=== PATIENT | female | born 1935 | race Caucasian/White ===

== ENCOUNTER → 2017-05-09 | Outpatient (CLI) | payer MEDICARE, OTHER ==
--- NOTE | 2017-05-09 13:12 | WWHP ---
DATE OF SERVICE: 05/09/17 CHIEF COMPLAINT: The patient is here for her routine gynecological exam and mammogram. HISTORY OF PRESENT ILLNESS: This is a 81-year-old G6, P5, 0, 1, 5 with an LMP of 1998. The patient is without gynecologic complaints and denies post menopausal bleeding. PAST MEDICAL HISTORY: Chronic hypertension, elevated cholesterol, osteopenia and history of transient acute anemia of unknown etiology in 2014. Medications: 1. Enalapril 10 mg daily. 2. Amlodipine 5 mg daily. 3. Simvastatin 20 mg daily. 4. Areds-2 two capsules daily. ALLERGIES: NOVOCAINE AND EPINEPHRINE. 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 SOCIAL HISTORY: She denies tobacco and drug use and has 0 to 2 alcohol drinks per month. She is a and is not seeing anybody at this time. 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 REVIEW OF SYSTEMS: She has gained about five pounds over the last year. She denies respiratory, cardiac or GI problems. She denies maltreatment or falling. : She does have occasional urinary leakage and this is about the same as in the past. PHYSICAL EXAM: Blood pressure 151/89. Height 5 feet 6 and one half inches. Weight 155 pounds. Temperature 97.7. Pulse 73. This is a well developed, well nourished white female who is alert and oriented times three in no acute distress. HEENT: is within normal limits. Neck is supple. There is a right sided soft tissue mass that measures approximately 5 cm which is smooth and nontender. This is unchanged from her previous exam. Chest and lungs clear to auscultation. Heart is regular rate and rhythm. Breasts: Without mass or discharge. Axillary exam is negative for adenopathy. Back negative for CVA tenderness. Abdomen is soft and nontender without palpable masses. Pelvic exam, external genitalia reveals mild to moderate atrophy without lesions. Cervix and vagina reveals mild to moderate atrophy without lesions. There is a Grade II cystocele in the midline. There is no significant change with Valsalva. No urinary leakage was demonstrated. The uterus seems well supported. The uterus is mid position, nongravid size and nontender. There are no palpable adnexal masses or tenderness. Rectal vaginal exam negative for mass or tenderness. Negative for occult blood. Extremities nontender. IMPRESSION: 1. A 81 year old menopausal female with Grade II cystocele. 2. Mild urinary incontinence. 3. History of osteopenia. 4. Right neck mass which is stable from last years exam. 5. Elevated blood pressure with history of chronic hypertension. PLAN: 1. Pap smear was deferred since she had a normal one last year. 2. Self breast examination was discussed with the patient. 3. Mammogram will be done today. 4. Osteoporosis prevention was discussed. We will plan on repeat bone density testing in one to two years. 5. The patient states she has seen her dry plasterer helper who has been following the right neck mass and states she will continue to see Dr. Santiago for this. 6. We discussed her Grade II cystocele, as she is having greater problems with urinary incontinence, we will consider referral to a urogynecologist. She was instructed to call if she would like to proceed with the referral. 7. She will return in one year. JOANNA
--- NOTE | 2017-05-10 07:46 | MM ---
Reason for exam: screening (asymptomatic). Last mammogram was performed 1 year and 1 month ago. History: Patient is postmenopausal. 2 benign cyst aspirations of the left breast. 2 benign cyst aspirations of the right breast. Benign excisional biopsy of the left breast. Physical Findings: A clinical breast exam by your physician is recommended on an annual basis and results should be correlated with mammographic findings. MG 3D Screening Mammo W/Cad Bilateral CC and MLO view(s) were taken. Prior study comparison: April 20, 2016, bilateral MG 3d screening mammo w/cad. April 07, 2015, left breast MG work up mamm w CAD LT. There are scattered fibroglandular densities. Benign calcifications seen. No significant changes when compared with prior studies. ASSESSMENT: Benign, BI-RAD 2 RECOMMENDATION: Routine screening mammogram of both breasts in 1 year.
== END | disposition home or self-care (01) ==
LOC: WWCWWP 07:29
PROVIDERS: ATTEND Obstetrics & Gynecology
DX: Z12.31 Encounter for screening mammogram for malignant neoplasm of breast (principal)
CPT/HCPCS: 77063; G0202

== ENCOUNTER → 2018-06-12 | Outpatient (CLI) | payer MEDICARE, OTHER ==
[2018-06-12 08:45] VITALS: BP 137/69; PULSE 88; TEMP 97.4; BMI 25.2
--- NOTE | 2018-06-12 09:22 | P.HPOB ---
History of Present Illness H&P Date: 06/12/18 Chief Complaint: The patient is here for her routine gynecologic exam and mammogram. This is an 83-year-old with an LMP of 1998. The patient is without gynecologic complaints and denies any postmenopausal bleeding. Review of Systems Her weight has been stable. She denies respiratory, cardiac and G.I. problems. She denies maltreatment or problems with falling. : she denies any significant problems with urinary leakage, but occasionally has to get to the bathroom right away. Past Medical History Past Medical History: No Reported History, Hyperlipidemia, Hypertension Additional Past Medical History / Comment(s): Episode of acute anemia of unknown etiology in 2015. History of osteopenia. 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 History of Any Multi-Drug Resistant Organisms: None Reported Past Surgical History: Breast Surgery (Multiple biopsies which were benign.), Tonsillectomy Additional Past Surgical History / Comment(s): Colonoscopies in 2009 and 2014. She had an upper endoscopy 2014. Past Psychological History: No Psychological Hx Reported Smoking Status: Never smoker Past Alcohol Use History: Rare (0-1 per month) Past Drug Use History: None Reported - Past Family History Father Family Medical History: Congestive Heart Failure (CHF) Additional Family Medical History / Comment(s): Grandfather had esophageal cancer Medications and Allergies Home Medications Medication Instructions Recorded Confirmed Type Cholecalciferol (Vitamin D3) PO DAILY 06/12/18 History [Vitamin D3] Enalapril [Vasotec] PO DAILY 06/12/18 History Simvastatin [Zocor] PO DAILY 06/12/18 History amLODIPine [Norvasc] PO DAILY 06/12/18 History Allergies Allergy/AdvReac Type Severity Reaction Status Date / Time No Known Allergies Allergy Verified 06/12/18 08:24 Exam Vital Signs Temp Pulse BP 06/12/18 08:42 97.4 F L 88 137/69 Intake and Output 06/11/18 06/12/18 06/12/18 22:59 06:59 14:59 Other: Weight 70.76 kg Height 5'6", BMI 25.2. This is a well-developed well-nourished white female who is alert and oriented times 3 in no acute distress. HEENT: Within normal limits. NECK: Supple without mass or thyromegaly. CHEST AND LUNGS: Clear to auscultation. HEART: Regular rate and rhythm. BREASTS: Are without mass or discharge. AXILLARY EXAM: Negative for adenopathy. BACK: Negative for CVA tenderness. She has 4 moles along the left scapula, each measuring less than 1 cm. ABDOMEN: Soft, nontender, without palpable masses. PELVIC EXAM: Normal external genitalia with mild to moderate atrophy. Cervix and vagina appear normal with moderate atrophy. There is no unusual discharge. There is no evidence of prolapse. The uterus is midposition, nongravid size and nontender. There are no palpable adnexal masses or tenderness. RECTAL EXAM: recto vaginal exam is negative for mass or tenderness and is negative for occult blood. EXTREMITIES: Nontender. IMPRESSION: 1. 83-year-old menopausal female with normal gynecologic exam. 2. Several moles in the area of the left scapula of her back. 3. History of osteopenia PLAN: 1. Pap smear was performed. 2. Self breast awareness was discussed with the patient. 3. Meaning mammogram will be done today. 4. Osteoporosis prevention was discussed. Will plan on having her repeat her bone density test next year. 5. I have recommended that she established with a data analytics chief scientist for regular skin exams and for evaluation of her moles on her back. 6. She does get flu shots in the fall and will be having this done in the near future. 7. She will return in one year.
--- NOTE | 2018-06-13 12:06 | MM ---
Reason for exam: screening (asymptomatic). Last mammogram was performed 1 year and 1 month ago. History: Patient is postmenopausal. 2 benign cyst aspirations of the left breast. 2 benign cyst aspirations of the right breast. Benign excisional biopsy of the left breast. Physical Findings: A clinical breast exam by your physician is recommended on an annual basis and results should be correlated with mammographic findings. MG 3D Screening Mammo W/Cad Bilateral CC and MLO view(s) were taken. Prior study comparison: May 09, 2017, bilateral MG 3d screening mammo w/cad. April 20, 2016, bilateral MG 3d screening mammo w/cad. The breast tissue is heterogeneously dense. This may lower the sensitivity of mammography. There are benign appearing round calcifications bilaterally. There is chronic nodularity in the left breast inferiorly. Asymmetric breast tissue in the right upper breast, stable. There is no discrete abnormality. ASSESSMENT: Benign, BI-RAD 2 RECOMMENDATION: Routine screening mammogram of both breasts in 1 year.
== END ==
LOC: WWCWWP 08:08
PROVIDERS: ATTEND Obstetrics & Gynecology
DX: Z12.31 Encounter for screening mammogram for malignant neoplasm of breast (principal)
CPT/HCPCS: 77063; 77067

== ENCOUNTER → 2019-08-27 | Outpatient (CLI) | payer MEDICARE ==
[2019-08-27 10:53] VITALS: BP 143/91; PULSE 97; RESP 18; TEMP 98.1
--- NOTE | 2019-08-27 11:36 | P.HPOB ---
History of Present Illness H&P Date: 08/27/19 Chief Complaint: The patient is here for her routine gynecologic exam and ma mmogram. This is an 84-year-old 015 with an LMP of 1998. The patient is without gynecologic complaints. Review of Systems She has lost about 2 pounds over the past year.. She denies respiratory, cardiac and G.I. problems. She denies maltreatment or problems with falling. : She does have occasional urinary leakage with coughing or sneezing. Past Medical History Past Medical History: No Reported History, Hyperlipidemia, Hypertension Additional Past Medical History / Comment(s): Episode of acute anemia of unknown etiology in 2015. History of osteopenia. 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 History of Any Multi-Drug Resistant Organisms: None Reported Past Surgical History: Breast Surgery, Tonsillectomy Additional Past Surgical History / Comment(s): Multiple benign breast biopsies. Colonoscopies in 2009 and 2014. She had an upper endoscopy 2014. Past Psychological History: No Psychological Hx Reported Smoking Status: Never smoker Past Alcohol Use History: Rare (0-4 per year) Past Drug Use History: None Reported Additional History: She is a and is not sexually active. 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 - Past Family History Father Family Medical History: Congestive Heart Failure (CHF) Additional Family Medical History / Comment(s): Grandfather had esophageal cancer Medications and Allergies Home Medications Medication Instructions Recorded Confirmed Type Enalapril [Vasotec] 10 mg PO DAILY 06/12/18 08/27/19 History Simvastatin [Zocor] 20 mg PO HS 06/12/18 08/27/19 History amLODIPine [Norvasc] 5 mg PO DAILY 06/12/18 08/27/19 History Vit C/E/Zn/Coppr/Lutein/Zeaxan 2 each PO DAILY 08/27/19 08/27/19 History [Preservision Areds 2 Softgel] Allergies Allergy/AdvReac Type Severity Reaction Status Date / Time No Known Allergies Allergy Verified 08/27/19 10:53 Exam Vital Signs Temp Pulse Resp BP Pulse Ox 08/27/19 10:49 98.1 F 97 18 143/91 98 Intake and Output 08/26/19 08/27/19 08/27/19 22:59 06:59 14:59 Other: Weight 69.853 kg Height 5 feet 6 inches, weight 154 pounds, BMI 24.9. This is a well-developed well-nourished white female who is alert and oriented times 3 in no acute distress. HEENT: Within normal limits. NECK: Supple. There is a right-sided neck mass which is soft and nontender. She has had this for many years and measures about 6 x 6 cm which is similar to last year's measurement. 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 CHEST AND LUNGS: Clear to auscultation. HEART: Regular rate and rhythm. BREASTS: Are without mass or discharge. AXILLARY EXAM: Negative for adenopathy. BACK: Negative for CVA tenderness. ABDOMEN: Soft, nontender, without palpable masses. PELVIC EXAM: Normal external genitalia with mild to moderate atrophy. Cervix and vagina appear normal with mild to moderate atrophy. There is no unusual discharge. There is no evidence of prolapse. There is mild urethral mobility with cough and Valsalva. No urinary leakage was demonstrated. The uterus is midposition, nongravid size and nontender. There are no palpable adnexal masses or tenderness. RECTAL EXAM: Rectovaginal exam is negative for mass or tenderness and is negative for occult blood. EXTREMITIES: Nontender. IMPRESSION: 1. 84-year-old menopausal female with normal gynecologic exam. 2. Right neck mass which has been followed by her supervisor aircraft maintenance for many years which is stable by exam. 3. History of osteopenia. PLAN: 1. Pap smears have been discontinued. She is over the age of 65, has had adequate screening, and has no history of cervical problems. 2. Self breast awareness was discussed with the patient. 3. Screening mammogram will be done today. 4. Osteoporosis prevention was discussed. I have stressed the importance of adequate calcium, vitamin D and regular exercise. Recommended amounts of calcium and vitamin D were also discussed. I have recommended that she repeat the bone density testing and the order slip was given to the patient for this. She states she we'll probably wait until next year. 5. She did receive her flu shot this fall. 6. The patient will return in 1-2 years for her well woman examination.
--- NOTE | 2019-08-28 09:51 | MM ---
Reason for exam: screening (asymptomatic). Last mammogram was performed 1 year and 2 months ago. History: Patient is postmenopausal. 2 benign cyst aspirations of the left breast. 2 benign cyst aspirations of the right breast. Benign excisional biopsy of the left breast. Physical Findings: A clinical breast exam by your physician is recommended on an annual basis and results should be correlated with mammographic findings. MG 3D Screening Mammo W/Cad Bilateral CC, MLO, and XCCL view(s) were taken. Prior study comparison: June 12, 2018, bilateral MG 3d screening mammo w/cad. May 09, 2017, bilateral MG 3d screening mammo w/cad. The breast tissue is heterogeneously dense. This may lower the sensitivity of mammography. There is an 8mm mass 4-5cm from nipple in the lower inner quadrant of the right breast. Benign appearing bilateral calcifications. No suspicious abnormality on the left. ASSESSMENT: Incomplete: need additional imaging evaluation, BI-RAD 0 RECOMMENDATION: Ultrasound of the right breast. (lower inner quadrant) [facility] will attempt to contact patient to return for ultrasound.
== END | disposition home or self-care (01) ==
LOC: WWCWWP 10:22
PROVIDERS: ATTEND Obstetrics & Gynecology
DX: Z12.31 Encounter for screening mammogram for malignant neoplasm of breast (principal)
CPT/HCPCS: 77063; 77067

== ENCOUNTER → 2019-09-11 | Outpatient (CLI) | payer MEDICARE ==
--- NOTE | 2019-09-11 13:01 | USB ---
Reason for exam: additional evaluation requested from abnormal screening. History: Patient is postmenopausal. 2 benign cyst aspirations of the left breast. 2 benign cyst aspirations of the right breast. Benign excisional biopsy of the left breast. Physical Findings: Nurse Summary: small palpable area left breast 1 o'clock, 4 o'clock (nurse TM). US Breast Workup Limited RT Technologist: Zoya Mendenhall Right limited breast ultrasound including focal area of concern, retroareolar and axilla demonstrates a 0.9 x 0.3 x 0.3cm benign lymph node at 2 o'clock and a 0.7 x 0.8 x 0.7cm lobular, hypoechoic lesion at 3 o'clock, corresponds to mammogram. These results were verbally communicated with the patient and result sheet given to the patient on 09/11/19. ASSESSMENT: Suspicious, BI-RAD 4 RECOMMENDATION: Ultrasound core biopsy of the right breast. Called Dr. Patricio's office with mammographic findings and has scheduled an appointment for the patient for 10/11/18 at 9:[address] Griffin. Biopsy scheduled for 10/14/18 at 12:20. PRELIMINARY REPORT CALLED AND FAXED TO DR. GRIFFIN ON 09/11/19.
== END | disposition home or self-care (01) ==
LOC: RADUSWWP 07:11
PROVIDERS: ATTEND Obstetrics & Gynecology
DX: R92.8 Other abnormal and inconclusive findings on diagnostic imaging of breast (principal)

== ENCOUNTER → 2019-10-11 | Outpatient (CLI) | payer MEDICARE ==
[2019-10-11 09:21] VITALS: BP 173/81; PULSE 67; RESP 18; TEMP 97.7
--- NOTE | 2019-10-11 10:14 | P.GSHP ---
History of Present Illness H&P Date: 10/11/19 Chief Complaint: abnormal radiographs of the right breast Brittany is an 84 year old white female seen in consultation for Dr. Patricio regarding a mammographic and ultrasound abnormality in the right breast. [place] [id number]. This revealed an 8 mm mass 4 cm from the nipple in the lower inner quadrant of the right breast. There are also benign-appearing bilateral calcifications. An ultrasound was then performed on [id number]. This revealed at the 3 o'clock position corresponding to the mammographic abnormality a 0.8 cm hypoechoic lesion. This was considered suspicious and ultrasound-guided core biopsy of the right breast was recommended. The patient has had bilateral needle biopsies in the past which have always been benign. The patient does not feel anything of concern in either breast. She is not complaining of any nipple discharge or skin changes. She is not complaining of any recent history of infection or trauma to the breast. Family history: paternal grandfather: esophageal cancer paternal cousin: esophageal cancer Hormonal history: Menarche: 18 , 1 miscarriage, breast fed: none, first born at 22 menopause: 56 BCP: none hormones: none Past Surgical History: 1. tonsil and adenoids Medical History: 1. Polymyalgia rheumatica 2. HTN (on medication) 3. hyperlipedema 4. 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 She does has had colonoscopies in 2015 and no source was iden tified. She has not had any bleeding since. Gastrointestinal: Denies abdominal pain, Denies diarrhea, Denies nausea, Denies vomiting - Genitourinary (Female) Genitourinary: Denies dysuria, Denies hematuria - Menstruation Menstruation: Reports postmenopausal - Musculoskeletal Comment: polymyalgia rheumitica - Integumentary Integumentary: Denies pruritus, Denies rash - Neurological Neurological: Denies numbness, Denies weakness - Psychiatric Psychiatric: Denies anxiety, Denies depression - Endocrine Endocrine: Denies fatigue, Denies weight change - Hematologic/Lymphatic Comment: none - Allergic/Immunologic Allergic/Immunologic: Reports as per HPI Past Medical History Past Medical History: Hyperlipidemia, Hypertension Additional Past Medical History / Comment(s): Episode of acute anemia of unknown etiology in 2015. History of osteopenia. History of Any Multi-Drug Resistant Organisms: None Reported Past Surgical History: Breast Surgery, Tonsillectomy Additional Past Surgical History / Comment(s): Multiple benign breast biopsies. Colonoscopies in 2009 and 2014. She had an upper endoscopy 2014. Past Psychological History: No Psychological Hx Reported Smoking Status: Never smoker Past Alcohol Use History: None Reported Past Drug Use History: None Reported - Past Family History Father Family Medical History: Congestive Heart Failure (CHF) Additional Family Medical History / Comment(s): Grandfather had esophageal cancer Medications and Allergies Home Medications Medication Instructions Recorded Confirmed Type Enalapril [Vasotec] 10 mg PO DAILY 06/12/18 10/11/19 History Simvastatin [Zocor] 20 mg PO HS 06/12/18 10/11/19 History amLODIPine [Norvasc] 5 mg PO DAILY 06/12/18 10/11/19 History Vit C/E/Zn/Coppr/Lutein/Zeaxan 1 each PO DAILY 09/20/19 10/11/19 History [Preservision Areds 2 Softgel] Allergies Allergy/AdvReac Type Severity Reaction Status Date / Time procaine [From Novocain] AdvReac Rapid Verified 10/11/19 09:17 Heart Rate Surgical - Exam Vital Signs Temp Pulse Resp BP Pulse Ox 97.7 F 67 18 173/81 96 10/11/19 09:18 10/11/19 09:18 10/11/19 09:18 10/11/19 09:18 10/11/19 09:18 BMI 24.5 - General well developed, well nourished, no distress - Eyes normal ocular movement - ENT no hearing loss, no congestion - Neck Mass right cervical region approximately 8 cm x 5 cm, patient states this is been biopsied is consistent with thyroid and is following with jail manager trachea midline, no lymphadectomy - Respiratory normal expansion, normal respiratory effort, clear to auscultation - Cardiovascular Rhythm: regular Heart Sounds: normal: S1, S2 - Abdomen Abdomen: soft, non tender, bowel sounds, no guarding, no rigid, no rebound - Integumentary normal turgor - Neurologic no disoriented, no combative - Musculoskeletal normal gait, normal posture - Psychiatric oriented to time, oriented to person, oriented to place, speech is normal, memory intact breast exam: BRA: 38D ptosis grade2/3 Inspection: No nipple inversion, no skin lesions of concern, ptosis grade 2/3 Right breast is slightly smaller than left breast Palpation: right breast: Multi-positional exam no dominant masses or nodules of concern Right axilla: No adenopathy of concern Left breast: Multiple positional exam no dominant masses or nodules of concern Left axilla: No adenopathy of concern Results Mammogram ultrasound results reviewed Assessment and Plan Assessment: Impression: 1. Radiographic abnormality right breast for which right breast ultrasound core biopsy is recommended 2. Fibrocystic breast changes 3. Family history of cancer 4. Poly myalgia rumatika 5. Hypertension 6. Hyperlipidemia 7. Prior history of GI bleed questionable etiology Plan: 1. Right breast ultrasound core biopsy 2. Patient is following with endocrinology regarding right neck mass 3. medical managment of medical conditions CC: DR. Patricio encounter 27 minutes, > 50% spent in planning and counselling
== END ==
LOC: WWCWWP 08:41
PROVIDERS: ATTEND Surgery
DX: Z53.9 Procedure and treatment not carried out, unspecified reason (principal)

== ENCOUNTER → 2019-10-14 | Day surgery (SDC) | payer MEDICARE ==
[2019-10-14 11:41] VITALS: RESP 16
--- NOTE | 2019-10-14 13:13 | USB ---
EXAMINATION TYPE: US biopsy breast VAD RT, MG diagnostic mammo RT wo CAD DATE OF EXAM: 10/14/2019 CLINICAL HISTORY: R92.8 ABN MAMMO. TECHNIQUE: Ultrasound guided core biopsy of right breast. COMPARISON: NONE FINDINGS: The procedure of ultrasound guided core biopsy was explained to the patient. Benefits, alternatives, and risks were discussed. An informed consent was then obtained. The patient was placed in supine positioning for imaging and for the procedure. The overlying skin was prepped and draped in usual sterile fashion. Lidocaine was used as anesthetic into the skin and subcutaneous tissue up to area of concern in the right breast. Under ultrasound guidance, a 12-gauge vacuum assisted biopsy gun device was used to obtain 4 core samples. Following this, a biopsy clip was left in lesion. Post procedural mammogram demonstrates appropriate deployment. The patient tolerated the procedure well without any immediate complication. The patient was kept in the radiology department for short stay after the procedure and then discharged home in stable condition. IMPRESSION: Successful, uncomplicated ultrasound guided core biopsy of area of concern in the right breast, full pathology results to follow. 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 See Surgical Pathology Cancer Case Summary. Recommendation Surgical consult of the right breast. JOANNA
[2019-10-14 13:22] VITALS: BP 148/96; PULSE 70; TEMP 98
== END ==
LOC: RADUSWWP 11:08
PROVIDERS: ATTEND Surgery
DX: C50.911 Malignant neoplasm of unspecified site of right female breast (principal); Z17.0 Estrogen receptor positive status [ER+]; Z88.8 Allergy status to other drugs, medicaments and biological substances
CPT/HCPCS: 88305; 88342; 88341; 77065; 19083; A4648; J2001

== ENCOUNTER → 2019-10-24 | Outpatient (CLI) | payer MEDICARE ==
[2019-10-24 13:23] VITALS: BP 128/86; PULSE 101; RESP 16; TEMP 98
--- NOTE | 2019-10-24 13:26 | P.PN ---
Subjective Progress Note Date: 10/24/19 Brittany is an 84 year old white female seen in consultation for Dr. Patricio regarding a mammographic and ultrasound abnormality in the right breast. [place] [id number]. This revealed an 8 mm mass 4 cm from the nipple in the lower inner quadrant of the right breast. T here are also benign-appearing bilateral calcifications. An ultrasound was then performed on [id number]. This revealed at the 3 o'clock position corresponding to the mammographic abnormality a 0.8 cm hypoechoic lesion. This was considered suspicious and ultrasound-guided core biopsy of the right breast was recommended. The patient has had bilateral needle biopsies in the past which have always been benign. The patient does not feel anything of concern in either breast. She is not complaining of any nipple discharge or skin changes. She is not complaining of any recent history of infection or trauma to the breast. Ultrasound core [place] [id number]. Pathology revealed an invasive mucinous carcinoma, ER/NE positive, HER-2 negative, grade 2. The patient does not have any complaints following the procedure. Family history: paternal grandfather: esophageal cancer paternal cousin: esophageal cancer Hormonal history: Menarche: 18 , 1 miscarriage, breast fed: none, first born at 22 menopause: 56 BCP: none hormones: none Past Surgical History: 1. tonsil and adenoids Medical History: 1. Polymyalgia rheumatica 2. HTN (on medication) 3. hyperlipedema 4. 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 She does has had colonoscopies in 2014 and no source was identified. She has not had any bleeding since. Gastrointestinal: Denies abdominal pain, Denies diarrhea, Denies nausea, Denies vomiting - Genitourinary (Female) Genitourinary: Denies dysuria, Denies hematuria - Menstruation Menstruation: Reports postmenopausal - Musculoskeletal Comment: polymyalgia rheumitica - Integumentary Integumentary: Denies pruritus, Denies rash - Neurological Neurological: Denies numbness, Denies weakness - Psychiatric Psychiatric: Denies anxiety, Denies depression - Endocrine Endocrine: Denies fatigue, Denies weight change - Hematologic/Lymphatic Comment: none - Allergic/Immunologic Allergic/Immunologic: Reports as per HPI Past Medical History Past Medical History: Hyperlipidemia, Hypertension Additional Past Medical History / Comment(s): Episode of acute anemia of unknown etiology in 2014. History of osteopenia. History of Any Multi-Drug Resistant Organisms: None Reported Past Surgical History: Breast Surgery, Tonsillectomy Additional Past Surgical History / Comment(s): Multiple benign breast biopsies. Colonoscopies in 2009 and 2014. She had an upper endoscopy 2014. Past Psychological History: No Psychological Hx Reported Smoking Status: Never smoker Past Alcohol Use History: None Reported Past Drug Use History: None Reported Objective - Vital Signs Vital signs: Intake & Output 10/23/19 10/24/19 10/24/19 18:59 06:59 18:59 Weight 69.853 kg - Exam BMI 24.9 - Constitutional General appearance: Present: average body habitus - EENT Eyes: Present: EOMI ENT: Present: hearing grossly normal - Neck Details: right thyroid enlarged Neck: Present: normal ROM - Respiratory Respiratory: bilateral: CTA - Cardiovascular Rhythm: regular Heart sounds: normal: S1, S2 - Gastrointestinal General gastrointestinal: Present: soft - Integumentary Integumentary Comment(s): Mild ecchymosis right breast biopsy site Integumentary: Present: normal turgor - Musculoskeletal Musculoskeletal: Present: gait normal - Psychiatric Psychiatric: Present: A&O x's 3, appropriate affect, intact judgment & insight - Additional findings Additional findings: Breast examination: Right breast: Mild ecchymosis right breast at biopsy site no evidence of infection Right axilla: No adenopathy of concern Left breast: No dominant masses or nodules of concern Left axilla: No adenopathy of concern Assessment and Plan Assessment: Impression: 1. Stage IA right breast cancer 2. Polymyalgia rheumatica 3. Hypertension 4. Hyperlipidemia 5. Osteopenia Plan: 1. Needle local lumpectomy with possible tissue transfer, sentinel node biopsy possible axillary node dissection; most likely to be done via a donut mastopexy incision 2. Presentation of case at tumor board 3. Medical clearance by Dr. Chaidez, Dr. Patricio Options of surgery discussed with the patient. Risk and benefits of patient's discussed with the patient. Option of mastectomy versus lumpectomy and sentinel biopsy possible axillary node dissection discussed with the patient. The patient wishes breast conservation surgery. Cc: Dr. Sheng Bennett encounter 30 minutes, > 50% spent in planning and counselling Time with Patient: Greater than 30
== END | disposition home or self-care (01) ==
LOC: WWCWWP 12:42
PROVIDERS: ATTEND Surgery
DX: Z53.9 Procedure and treatment not carried out, unspecified reason (principal)

== ENCOUNTER → 2020-12-01 | Outpatient (CLI) | payer MEDICARE ==
[2020-12-01 11:30] VITALS: BP 143/90; PULSE 97; RESP 18; TEMP 98.3
--- NOTE | 2020-12-01 12:20 | P.HPOB ---
History of Present Illness H&P Date: 12/01/20 Chief Complaint: The patient is here for her routine gynecologic exam. This is an 85-year-old 015 with an LMP of 1998. The patient is without gynecologic complaints. She underwent a right breast lumpectomy in November [address] Anna tirado [facility]. She states she did not require radiation therapy but takes Arimidex daily. Her oncologist ordered a bone density test in the patient states that showed osteopenia. Review of Systems She has gained about 5 pounds over the past year. She denies respiratory, cardiac and G.I. problems. She denies maltreatment or problems with falling. : She has had occasional urinary leakage but this has improved with exercises. Past Medical History Past Medical History: Cancer, Hyperlipidemia, Hypertension Additional Past Medical History / Comment(s): Episode of acute anemia of unknown etiology in 2014. History of osteopenia. thyroid nodule-current, macular degeneration left eye. Right breast cancer status post lumpectomy in 2019. 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 History of Any Multi-Drug Resistant Organisms: None Reported Past Surgical History: Breast Surgery, Tonsillectomy Additional Past Surgical History / Comment(s): Multiple benign breast biopsies. Right breast lumpectomy in 2019. Colonoscopies in 2009 and 2014. Upper endoscopy 2014. Past Anesthesia/Blood Transfusion Reactions: Postoperative Nausea & Vomiting (PONV) Past Psychological History: No Psychological Hx Reported Smoking Status: Never smoker Past Alcohol Use History: None Reported Past Drug Use History: None Reported Additional History: She is a and is not sexually active. 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 - Past Family History Father Family Medical History: Congestive Heart Failure (CHF) Additional Family Medical History / Comment(s): Grandfather had esophageal cancer Medications and Allergies Home Medications Medication Instructions Recorded Confirmed Type Enalapril [Vasotec] 10 mg PO DAILY 06/12/18 12/01/20 History Simvastatin [Zocor] 20 mg PO HS 06/12/18 12/01/20 History amLODIPine [Norvasc] 5 mg PO DAILY 06/12/18 12/01/20 History Vit C/E/Zn/Coppr/Lutein/Zeaxan 1 each PO DAILY 09/20/19 12/01/20 History [Preservision Areds 2 Softgel] Anastrozole [Arimidex] 1 mg PO DAILY 12/01/20 12/01/20 History Cholecalciferol [Vitamin D3 (25 25 mcg PO DAILY 12/01/20 12/01/20 History Mcg = 1000 Iu)] Allergies Allergy/AdvReac Type Severity Reaction Status Date / Time epinephrine AdvReac Rapid Verified 12/01/20 11:25 Heart Rate Exam Vital Signs Temp Pulse Resp BP Pulse Ox 12/01/20 11:27 98.3 F 97 18 143/90 97 Intake and Output 11/30/20 12/01/20 12/01/20 22:59 06:59 14:59 Other: Weight 72.121 kg Height 5 feet 4 inches, weight 159 pounds, BMI 27.3. This is a well-developed well-nourished white female who is alert and oriented times 3 in no acute distress. HEENT: Within normal limits. NECK: Supple . There is a visible right neck mass which is soft and nontender and measures 6 x 5 cm. This is stable from last year's measurement. She states this is followed by her community service aide. CHEST AND LUNGS: Clear to auscultation. HEART: Regular rate and rhythm. BREASTS: Are without mass or discharge. There is a mole on the left breast that is fairly flat and measures 2.0 x 1.3 cm. AXILLARY EXAM: Negative for adenopathy. BACK: Negative for CVA tenderness. ABDOMEN: Soft, nontender, without palpable masses. PELVIC EXAM: Normal external genitalia with mild to moderate atrophy. Cervix and vagina appear normal mild to moderate atrophy. There is no unusual discharge. There is no evidence of prolapse. The uterus is midposition, nongravid size and nontender. There are no palpable adnexal masses or tenderness. RECTAL EXAM: Rectovaginal exam is negative for mass or tenderness and is negative for occult blood. EXTREMITIES: Nontender. IMPRESSION: 1. 85-year-old menopausal female with normal gynecologic exam. 2. History of right breast cancer status post lumpectomy and she is currently on Arimidex. 3. History of osteopenia. 4. Stable benign neck mass. 5. Mole on left breast which measures approximately 2.0 x 1.3 cm. PLAN: 1. Pap smears have been discontinued since she is considered low risk. 2. Self breast awareness was discussed with the patient. She will continue to follow-up with her oncologist and breast surgeon as directed. She is scheduled for a mammogram in the near future as ordered by her breast cancer doctor. I have also recommended that she establish with a cookie mixer helper since she does have multiple moles including the one on the left breast and have recommended that she have regular dermatology exams with that person. 3. Osteoporosis prevention was discussed. I have stressed the importance of adequate calcium, vitamin D and regular exercise. Recommended amounts of calcium and vitamin D were also discussed. I have asked her to see if she can obtain a copy of her last bone density test and have it sent to me. 4. She did get a flu shot last fall. She plans to get the Covid vaccination when it becomes available to her. 5. The patient was advised to return in 1-2 years for her well woman examination.
== END ==
LOC: WWCWWP 11:04
PROVIDERS: ATTEND Obstetrics & Gynecology
DX: D24.2 Benign neoplasm of left breast (principal); R22.1 Localized swelling, mass and lump, neck; Z87.39 Personal history of other diseases of the musculoskeletal system and connective tissue; Z85.3 Personal history of malignant neoplasm of breast; Z79.811 Long term (current) use of aromatase inhibitors; I10 Essential (primary) hypertension; E78.5 Hyperlipidemia, unspecified; Z79.899 Other long term (current) drug therapy; Z98.890 Other specified postprocedural states

== ENCOUNTER 2020-12-03 14:30 | Emergency (ER) | payer MEDICARE ==
[2020-12-03 14:36] VITALS: TEMP 98.6
--- NOTE | 2020-12-03 15:31 | ED ---
General Adult HPI - General Chief complaint: Neuro Symptoms/Deficit Stated complaint: sent by Dm/memory problem Time Seen by Provider: 12/03/20 14:30 Source: patient, RN notes reviewed, old records reviewed Mode of arrival: ambulatory Limitations: no limitations - History of Present Illness Initial comments: This is a 85-year-old female presents emergency department stating that she had no episode yesterday where her speech was garbled for about 2 minutes and then it completely resolved. Patient states since then she's had no further problems no numbness no weakness. Patient denies any headache patient denies any recent fever chills or cough per patient denies any chest pain or palpitations. Patient states her primary medical care doctor wanted to get a CAT scan of her head and she wants no further workup I recommended a a CT angiogram of her head neck and she refused. Patient refused any lab work. - Related Data Home Medications Medication Instructions Recorded Confirmed Enalapril [Vasotec] 10 mg PO DAILY 06/12/18 12/03/20 Simvastatin [Zocor] 20 mg PO HS 06/12/18 12/03/20 amLODIPine [Norvasc] 5 mg PO DAILY 06/12/18 12/03/20 Vit C/E/Zn/Coppr/Lutein/Zeaxan 2 cap PO DAILY 09/20/19 12/03/20 [Preservision Areds 2 Softgel] Anastrozole [Arimidex] 1 mg PO DAILY 12/01/20 12/03/20 Cholecalciferol [Vitamin D3 (25 25 mcg PO DAILY 12/01/20 12/03/20 Mcg = 1000 Iu)] Allergies Allergy/AdvReac Type Severity Reaction Status Date / Time epinephrine AdvReac Rapid Verified 12/03/20 16:17 Heart Rate Review of Systems ROS Statement: Those systems with pertinent positive or pertinent negative responses have been documented in the HPI. ROS Other: All systems not noted in ROS Statement are negative. Past Medical History Past Medical History: Cancer, Hyperlipidemia, Hypertension Additional Past Medical History / Comment(s): Episode of acute anemia of unknown etiology in 2014. History of osteopenia. thyroid nodule-current, macular degeneration left eye. Right breast cancer status post lumpectomy in 2019. 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 History of Any Multi-Drug Resistant Organisms: None Reported Past Surgical History: Breast Surgery, Tonsillectomy Additional Past Surgical History / Comment(s): Multiple benign breast biopsies. Right breast lumpectomy in 2019. Colonoscopies in 2009 and 2014. Upper endoscopy 2014. Past Anesthesia/Blood Transfusion Reactions: Postoperative Nausea & Vomiting (PONV) Past Psychological History: No Psychological Hx Reported Smoking Status: Never smoker Past Alcohol Use History: None Reported Past Drug Use History: None Reported - Past Family History Father Family Medical History: Congestive Heart Failure (CHF) Additional Family Medical History / Comment(s): Grandfather had esophageal cancer General Exam - General Exam Comments Initial Comments: GENERAL: Patient is well-developed and well-nourished. Patient is nontoxic and well- hydrated and is in no acute distress. ENT: Neck is soft and supple. No significant lymphadenopathy is noted. Oropharynx is clear. Moist mucous membranes. Neck has full range of motion without eliciting any pain. EYES: The sclera were anicteric and conjunctiva were pink and moist. Extraocular movements were intact and pupils were equal round and reactive to light. Eyelids were unremarkable. PULMONARY: Unlabored respirations. Good breath sounds bilaterally. No audible rales rhonchi or wheezing was noted. CARDIOVASCULAR: There is a regular rate and rhythm without any murmurs gallops or rubs. Femoral pulses are equal bilaterally SKIN: Skin is clear with no lesions or rashes and otherwise unremarkable. NEUROLOGIC: Patient is alert and oriented x3. Cranial nerves II through XII are grossly intact. Motor and sensory are also intact. Normal speech, volume and content. Symmetrical smile. MUSCULOSKELETAL: Normal extremities with adequate strength and full range of motion. No lower extremity swelling or edema. No calf tenderness. LYMPHATICS: No significant lymphadenopathy is noted PSYCHIATRIC: Normal psychiatric evaluation. Normal interpersonal interactions appears functionally intact in deals appropriately with others. No signs of depression. No signs of anxiety. No delusions. Limitations: no limitations Course Vital Signs 12/03/20 14:33 Temperature 98.6 F Pulse Rate 99 Respiratory 18 Rate Blood Pressure 180/94 O2 Sat by Pulse 98 Oximetry Medical Decision Making - Medical Decision Making CT of the brain shows no acute abnormality. Patient has had no neurologic deficit while in the emergency department. Patient refuses any further workup at this time will follow-up with the primary medical care doctor for further follow-up. Patient has been informed that she should take an aspirin daily until she follows up. Disposition Clinical Impression: Transient cerebral ischemia Disposition: HOME SELF-CARE Condition: Good Instructions (If sedation given, give patient instructions): Transient Ischemic Attack (ED) Additional Instructions: Patient should take a full aspirin daily until follow-up. Is patient prescribed a controlled substance at d/c from ED?: No Referrals: Kandice Chaidez MD [Primary Care Provider] - 1-2 days Time of Disposition: 16:27
--- NOTE | 2020-12-03 16:21 | CT ---
EXAMINATION TYPE: CT brain wo con DATE OF EXAM: 12/03/2020 COMPARISON: None HISTORY: 85 year-old female Episode of speech disturbance. TECHNIQUE: Examination was done in axial plane without intravenous contrast. Coronal and sagittal r econstructions performed. CT DLP: 1217.4 mGycm Automated exposure control for dose reduction was used. FINDINGS: There is no evidence of acute intracranial hemorrhage, acute ischemic changes, mass effect, or extra -axial fluid collection. There is no effacement of cerebral sulci or basal subarachnoid cisterns. Mi ld ventricular prominence likely from central cerebral atrophy. Moderate patchy periventricular white matter hypodensities. Calcified extra-axial lesion left frontotemporal junction, axial image 21 and coronal image 29 measur ing 1.3 cm. There is no midline shift. Rodgers-white matter distinction is preserved. At the scattered calcifications within the carotid siphons. Paranasal sinuses and mastoid air cells are well pneumatized. Orbits and globes are intact. IMPRESSION: Mild central cerebral atrophy and mild to moderate burden of chronic small vessel ischemic disease. C alcified extra-axial lesion along the left frontotemporal junction measuring 1.3 cm suggesting a meni ngioma. No acute intracranial abnormality seen.
[2020-12-03 16:36] VITALS: BP 145/96; PULSE 86; RESP 16
== END 2020-12-03 16:36 | disposition home or self-care (01) ==
LOC: EC 14:30
DX: G45.9 Transient cerebral ischemic attack, unspecified (principal); E78.5 Hyperlipidemia, unspecified; I10 Essential (primary) hypertension; Z85.3 Personal history of malignant neoplasm of breast
CPT/HCPCS: 70450; 99284

== ENCOUNTER → 2022-01-25 | Outpatient (CLI) | payer MEDICARE ==
[2022-01-25 07:57] VITALS: BP 137/96; PULSE 83; RESP 17; TEMP 98.7
--- NOTE | 2022-01-25 08:36 | P.HPOB ---
History of Present Illness H&P Date: 01/25/22 Chief Complaint: The patient is here for her routine gynecologic exam. This is an 86-year-old 015 with an LMP of 1998. The patient is without gynecologic complaints. Review of Systems The patient's weight has been stable over the last year. She denies respiratory, cardiac, or G.I. problems. Past Medical History Past Medical History: Cancer, Hyperlipidemia, Hypertension Additional Past Medical History / Comment(s): Episode of acute anemia of unknown etiology in 2014. History of osteopenia. thyroid nodule-current, macular degeneration left eye. Right breast cancer status post lumpectomy in 2019. 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 History of Any Multi-Drug Resistant Organisms: None Reported Past Surgical History: Breast Surgery, Tonsillectomy Additional Past Surgical History / Comment(s): Multiple benign breast biopsies. Right breast lumpectomy in 2019. Colonoscopies in 2009 and 2014. Upper endoscopy 2014. Past Anesthesia/Blood Transfusion Reactions: Postoperative Nausea & Vomiting (PONV) Past Psychological History: No Psychological Hx Reported Smoking Status: Never smoker Past Alcohol Use History: None Reported Past Drug Use History: None Reported Additional History: She is a and is not sexually active. 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 - Past Family History Father Family Medical History: Congestive Heart Failure (CHF) Additional Family Medical History / Comment(s): Grandfather had esophageal cancer Medications and Allergies Home Medications Medication Instructions Recorded Confirmed Type Enalapril [Vasotec] 10 mg PO DAILY 06/12/18 01/25/22 History Simvastatin [Zocor] 20 mg PO HS 06/12/18 01/25/22 History amLODIPine [Norvasc] 5 mg PO DAILY 06/12/18 01/25/22 History Vit C/E/Zn/Coppr/Lutein/Zeaxan 2 cap PO DAILY 09/20/19 01/25/22 History [Preservision Areds 2 Softgel] Anastrozole [Arimidex] 1 mg PO DAILY 12/01/20 01/25/22 History Cholecalciferol [Vitamin D3 (25 25 mcg PO DAILY 12/01/20 01/25/22 History Mcg = 1000 Iu)] Allergies Allergy/AdvReac Type Severity Reaction Status Date / Time epinephrine AdvReac Rapid Verified 01/25/22 07:50 Heart Rate Exam Vital Signs Temp Pulse Resp BP Pulse Ox 01/25/22 07:54 98.7 F 83 17 137/96 98 Intake and Output 01/24/22 01/25/22 01/25/22 22:59 06:59 14:59 Other: Weight 73.028 kg Height 5 feet 6 inches, weight 161 pounds, BMI 26.0. This is a well-developed well-nourished white female who is alert and oriented times 3 in no acute distress. HEENT: There is redness in the left eye which she states she sometimes gets with her macular degeneration injections. She is aware of this redness and will speak with her eye doctor if it persists. NECK: Supple. There is a right neck mass which is soft and nontender measuring 7 x 6 cm. This is slightly larger than last year's measurement. She states her endocrinology doctor is planning on having her get this surgically removed in the upcoming year. CHEST AND LUNGS: Clear to auscultation. HEART: Regular rate and rhythm. BREASTS: Are without mass or discharge. There is a dimpled area in the right breast at the 2 o'clock position consistent with her previous lumpectomy. The left breast has a mole which is fairly flat plane measures 2.0 x 1.1 cm. This is stable from her previous exam. AXILLARY EXAM: Negative for adenopathy. BACK: Negative for CVA tenderness. ABDOMEN: Soft, nontender, without palpable masses. PELVIC EXAM: Normal external genitalia with mild to moderate atrophy. Cervix and vagina appear normal with mild to moderate atrophy. There is no unusual discharge. There is no evidence of prolapse. The uterus is midposition, nongravid size and nontender. There are no palpable adnexal masses or tenderness. RECTAL EXAM: Rectovaginal exam is negative for mass or tenderness and is negative for occult blood. EXTREMITIES: Nontender. IMPRESSION: 1. 86-year-old menopausal female with normal gynecologic exam. 2. History of right breast cancer status post lumpectomy and is currently on Arimidex. 3. History of osteopenia. 4. Right neck mass which is slightly larger and she states she is planning on having it removed surgically later this year. 5. Stable mole on the left breast measuring approximately 2.0 x 1.1 cm. PLAN: 1. Pap smears have been discontinued since she is considered low risk. 2. Self breast awareness was discussed with the patient. We have also discussed symptoms associated with inflammatory breast cancer. She will continue to follow up with her breast surgeon and oncologist. I have also recommended that she establish with a kitchen cleaner for regular skin checks because of the number of moles she has as well as to follow the mole on the left breast. 3. Osteoporosis prevention was discussed. I have stressed the importance of adequate calcium, vitamin D and regular exercise. Recommended amounts of calcium and vitamin D were also discussed. She has been having bone density test done through her oncologist. She will also try to get a copy of the bone density tests to me. She will discuss with her oncology doctor when he suggestive of the bone density test since she has been doing them through that doctor. 4. She did receive a Covid vaccination series. She has not gotten a booster. She will consider the booster. 5. She was advised to return in one year for her annual well woman exam.
== END ==
LOC: WWCWWP 07:40
PROVIDERS: ATTEND Obstetrics & Gynecology
DX: Z01.419 Encounter for gynecological examination (general) (routine) without abnormal findings (principal); R22.1 Localized swelling, mass and lump, neck; D24.2 Benign neoplasm of left breast; I10 Essential (primary) hypertension; E78.5 Hyperlipidemia, unspecified; Z78.0 Asymptomatic menopausal state; Z85.3 Personal history of malignant neoplasm of breast; Z87.39 Personal history of other diseases of the musculoskeletal system and connective tissue; Z88.8 Allergy status to other drugs, medicaments and biological substances

== ENCOUNTER → 2023-10-10 | Outpatient (CLI) | payer MEDICARE ==
[2023-10-10 08:16] VITALS: BP 164/91; PULSE 97; RESP 17; TEMP 97.9
--- NOTE | 2023-10-10 08:58 | P.HPOB ---
History of Present Illness H&P Date: 10/10/23 Chief Complaint: Patient is here for her routine gynecologic exam. This is an 88-year-old 015 with an LMP of 1998. The patient is without gynecologic complaints. Review of Systems The patient's weight has been stable over the last year. She denies respiratory, cardiac, or G.I. problems. : Occasional urinary leakage. Neuro: She has been experiencing some minor tremors and has been seeing a neurologist for this. Past Medical History Past Medical History: Cancer, Hyperlipidemia, Hypertension Additional Past Medical History / Comment(s): Episode of acute anemia of unknown etiology in 2014. History of osteopenia. thyroid nodule-current, macular degeneration left eye. Right breast cancer status post lumpectomy in 2019. Mild tremors. 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 History of Any Multi-Drug Resistant Organisms: None Reported Past Surgical History: Breast Surgery, Tonsillectomy Additional Past Surgical History / Comment(s): Multiple benign breast biopsies. Right breast lumpectomy in 2019. Colonoscopies in 2009 and 2014. Upper endoscopy 2014. Past Anesthesia/Blood Transfusion Reactions: Postoperative Nausea & Vomiting (PONV) Past Psychological History: No Psychological Hx Reported (PHQ-2 questionaire was given and she scores 0. This is a negative screen for depression.) Smoking Status: Never smoker Past Alcohol Use History: None Reported Past Drug Use History: None Reported Additional History: She is a and is not sexually active. She is retired and has dogs. - Past Family History Father Family Medical History: Congestive Heart Failure (CHF) Additional Family Medical History / Comment(s): Grandfather had esophageal can cer Medications and Allergies Home Medications Medication Instructions Recorded Confirmed Type Enalapril [Vasotec] 10 mg PO DAILY 06/12/18 10/10/23 History Simvastatin [Zocor] 20 mg PO HS 06/12/18 10/10/23 History amLODIPine [Norvasc] 5 mg PO DAILY 06/12/18 10/10/23 History Vit C/E/Zn/Coppr/Lutein/Zeaxan 2 cap PO DAILY 09/20/19 10/10/23 History [Preservision Areds 2 Softgel] Anastrozole [Arimidex] 1 mg PO DAILY 12/01/20 10/10/23 History Cholecalciferol [Vitamin D3 (25 25 mcg PO DAILY 12/01/20 10/10/23 History Mcg = 1000 Iu)] Allergies Allergy/AdvReac Type Severity Reaction Status Date / Time epinephrine AdvReac Rapid Verified 10/10/23 08:08 Heart Rate Exam Vital Signs Temp Pulse Resp BP Pulse Ox 10/10/23 08:09 97.9 F 97 17 164/91 97 Intake and Output 10/09/23 10/10/23 10/10/23 22:59 06:59 14:59 Other: Weight 73.028 kg Height 5 feet 2 inches, weight 161 pounds, BMI 29.4. This is a well-developed well-nourished white female who is alert and oriented times 3 in no acute distress. HEENT: Within normal limits. NECK: Supple. She continues to have a right neck mass which is soft and nontender measuring approximately 6 x 6 cm. She is planning on having some type of nonsurgical treatment for this in the future. CHEST AND LUNGS: Clear to auscultation. HEART: Regular rate and rhythm. BREASTS: Are without mass or discharge. There is a mole on the left breast at approximately the 4 o'clock position measuring approximately 2 x 1.5 cm. AXILLARY EXAM: Negative for adenopathy. BACK: Negative for CVA tenderness. ABDOMEN: Soft, nontender, without palpable masses. PELVIC EXAM: Normal external genitalia with moderate atrophy. Cervix and vagina appear normal to moderate atrophy. There is no unusual discharge. There is a grade 2 cystocele. The uterus is midposition, nongravid size and nontender. There are no palpable adnexal masses or tenderness. RECTAL EXAM: Rectovaginal exam is negative for mass or tenderness and is negative for occult blood. EXTREMITIES: Nontender. IMPRESSION: 1. 88-year-old menopausal female with a grade 2 cystocele and otherwise unremarkable gynecologic exam. 2. History of right breast cancer status post lumpectomy and there is currently no evidence of recurrence on exam today. 3. History of osteopenia. 4. Stable right neck mass who she sees somebody for and there are plans on having it nonsurgically treated. 5. Stable mole on the left breast measuring approximately 2 x 1.5 cm. PLAN: 1. Pap smears have been discontinued. 2. Self breast awareness was discussed with the patient. We have also discussed symptoms associated with inflammatory breast cancer. 3. Osteoporosis prevention was discussed. I have stressed the importance of adequate calcium, vitamin D and regular exercise. Recommended amounts of calcium and vitamin D were also discussed. Her last bone density test was done in November 2022 and this was done through her oncologist. 4. PHQ-2 questionaire was given and she scores 0. This is a negative screen fo r depression. 5. We have discussed the small cystocele. I recommended that she try to avoid holding urine longer than necessary. We also discussed the option of seeing a gynecologic urologist for some leakage issues. She states she will let me know if she desires a referral for this. 6. Mammograms will be done through her oncologist as she has done in the past. She will try to have a copy of the report sent to me. 7. I recommended that she establish with a process machine operator for a general skin check on a regular basis. 8. The patient was advised to return in 1-2 years for her well woman exam ination.
== END ==
LOC: WWCWWP 08:04
PROVIDERS: ATTEND Obstetrics & Gynecology
DX: Z00.00 Encounter for general adult medical examination without abnormal findings (principal)

== ENCOUNTER → 2024-11-26 | Outpatient (CLI) | payer MEDICARE ==
[2024-11-26 08:27] VITALS: BP 147/93; PULSE 87; RESP 17; TEMP 97
--- NOTE | 2024-11-26 08:47 | P.HPOB ---
History of Present Illness H&P Date: 11/26/24 Chief Complaint: The patient is here for her routine gynecologic exam This is an 89-year-old -0-1-5 with an LMP of 1998. The patient is without gynecologic complaints. Review of Systems The patient's weight has been stable over the last year. She denies respiratory, cardiac, or G.I. problems. Past Medical History Past Medical History: Cancer, Hyperlipidemia, Hypertension Additional Past Medical History / Comment(s): Episode of acute anemia of unknown etiology in 2014. History of osteopenia. thyroid nodule-current, macular degeneration left eye. Right breast cancer status post lumpectomy in 2019. Mild tremors. 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 History of Any Multi-Drug Resistant Organisms: None Reported Past Surgical History: Breast Surgery, Tonsillectomy Additional Past Surgical History / Comment(s): Multiple benign breast biopsies. Right breast lumpectomy in 2019. Colonoscopies in 2009 and 2014. Upper endoscopy 2014. Past Anesthesia/Blood Transfusion Reactions: Postoperative Nausea & Vomiting (PONV) Past Psychological History: No Psychological Hx Reported Smoking Status: Never smoker Past Alcohol Use History: None Reported Past Drug Use History: None Reported Additional History: She is a and is not sexually active. She is retired and has dogs. - Past Family History Father Family Medical History: Congestive Heart Failure (CHF) Additional Family Medical History / Comment(s): Grandfather had esophageal cancer Daughter(s) Family Medical History: CVA/TIA Medications and Allergies Home Medications Medication Instructions Recorded Confirmed Type Enalapril [Vasotec] 10 mg PO DAILY 06/12/18 10/10/23 History Simvastatin [Zocor] 20 mg PO HS 06/12/18 10/10/23 History amLODIPine [Norvasc] 5 mg PO DAILY 06/12/18 10/10/23 History Anastrozole [Arimidex] 1 mg PO DAILY 12/01/20 10/10/23 History Cholecalciferol [Vitamin D3 (25 25 mcg PO DAILY 12/01/20 10/10/23 History Mcg = 1000 Iu)] Allergies Allergy/AdvReac Type Severity Reaction Status Date / Time epinephrine AdvReac Rapid Verified 10/10/23 08:08 Heart Rate Exam Vital Signs Temp Pulse Resp BP Pulse Ox 11/26/24 08:14 97 F L 87 17 147/93 96 Intake and Output 11/25/24 11/26/24 11/26/24 22:59 06:59 14:59 Other: Weight 160 kg Height 5 feet 4 inches, weight 160 pounds, BMI 27.5. This is a well-developed well-nourished white female who is alert and oriented times 3 in no acute distress. HEENT: Within normal limits. NECK: Supple. She continues to have a right neck mass which is soft and nontender measuring approximately 6 x 6 cm. 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 CHEST AND LUNGS: Clear to auscultation. HEART: Regular rate and rhythm. BREASTS: Are without mass or discharge. AXILLARY EXAM: Negative for adenopathy. BACK: Negative for CVA tenderness. ABDOMEN: Soft, nontender, without palpable masses. PELVIC EXAM: Normal external genitalia with moderate Atrophy. Cervix and vagina appear normal with mild to moderate atrophy. There is no unusual discharge. There is a stable grade 1-2 cystocele. The uterus is midposition, nongravid size and nontender. There are no palpable adnexal masses or tenderness. RECTAL EXAM: Rectovaginal exam is negative for mass or tenderness and is negative for occult blood. Had a red appearance, but tested negative for occult blood. Patient states she ate something with red dye recently noticed a change in the color of her stool. EXTREMITIES: Nontender. IMPRESSION: 1. 89-year-old menopausal female with stable grade 1-2 cystocele and otherwise unremarkable gynecologic exam. 2. History of right breast cancer 2019 status postlumpectomy, with no evidence of recurrence. 3. Persistent right neck mass which is follow-up with her printed circuit boards contact printer. 4. Red-colored stool with negative Hemoccult testing. This is probably due to the food with red dye that she consumed recently. PLAN: 1. Pap smears have been discontinued. 2. Self breast awareness was discussed with the patient. We have also discussed symptoms associated with inflammatory breast cancer. 3. Mammogram will be due in December. She does this through her breast surgeon and she states that will be done at [facility]. 4. She red-colored stool should pass if it was related to the recent red dyed food she ate. She was instructed to call her PCP or a GI specialist if the red color persists. 5. Osteoporosis prevention was discussed. I have stressed the importance of adequate calcium, vitamin D and regular exercise. Recommended amounts of calcium and vitamin D were also discussed. Testing done through her oncologist as she has done in the past. She states her most recent bone density test again showed osteopenia. 6. She was advised to return in one year for her annual well woman exam.
== END ==
LOC: WWCWWP 07:47
PROVIDERS: ATTEND Obstetrics & Gynecology
DX: N95.1 Menopausal and female climacteric states (principal); N81.10 Cystocele, unspecified; R22.1 Localized swelling, mass and lump, neck; Z85.3 Personal history of malignant neoplasm of breast; Z90.12 Acquired absence of left breast and nipple; Z88.6 Allergy status to analgesic agent